=== PATIENT | male | born 1970 | race Caucasian/White ===

== ENCOUNTER 2016-03-06 11:00 | Emergency (ER) | payer OTHER | END 2016-03-06 12:30 | disposition home or self-care (01) | LOC: D.ER 11:00 | DX: S99.922A Unspecified injury of left foot, initial encounter (principal); X58.XXXA Exposure to other specified factors, initial encounter; Y93.9 Activity, unspecified; Y92.89 Other specified places as the place of occurrence of the external cause; F17.200 Nicotine dependence, unspecified, uncomplicated ==

== ENCOUNTER 2016-11-14 07:53 | Emergency (ER) | payer OTHER | END 2016-11-14 09:07 | disposition home or self-care (01) | LOC: D.ER 07:53 | DX: H92.02 Otalgia, left ear (principal); H60.92 Unspecified otitis externa, left ear; H66.92 Otitis media, unspecified, left ear; F17.200 Nicotine dependence, unspecified, uncomplicated ==

== ENCOUNTER 2017-01-31 14:18 | Emergency (ER) | payer OTHER | END 2017-01-31 18:55 | disposition home or self-care (01) | LOC: D.ER 14:18 | DX: J20.9 Acute bronchitis, unspecified (principal) ==

== ENCOUNTER 2017-08-01 14:07 | Emergency (ER) | payer SELFPAY ==
[~2017-08-01] VITALS: Ht 167.6 cm; Wt 81.8 kg
[2017-08-01 14:11] VITALS: Ht 167.6 cm; Wt 81.8 kg
[2017-08-01] MEDS ORDERED: ULTRAM50 MG PO (17:09)
[2017-08-01] MEDS ORDERED: KEFLEX500 MG PO (17:09)
[2017-08-01 17:16] VITALS: BP 136/90
== END 2017-08-01 17:17 | disposition home or self-care (01) ==
LOC: D.ER 14:07
DX: I86.1 Scrotal varices (principal); F17.200 Nicotine dependence, unspecified, uncomplicated

== ENCOUNTER 2017-08-17 19:20 | Emergency (ER) | payer SELFPAY ==
[~2017-08-17] VITALS: Ht 167.6 cm; Wt 70.5 kg
[~2017-08-17 19:20] MED LIST: KEFLEX500 MG PO; ULTRAM50 MG PO
[2017-08-17 19:29] VITALS: BP 117/70; Ht 167.6 cm; Wt 70.5 kg
[2017-08-17] MEDS ORDERED: BACTRIM DS TABL1 TAB PO (22:01)
== END 2017-08-17 22:30 | disposition home or self-care (01) ==
LOC: D.ER 19:20
DX: L03.317 Cellulitis of buttock (principal)